=== PATIENT | male | born 1930 | race Caucasian/White ===

== ENCOUNTER → 2017-05-07 | Outpatient (CLI) | payer MEDICARE, OTHER ==
--- NOTE | 2017-05-07 15:36 | RADIOLOGY REPORT (SQ) ---
EXAM DESCRIPTION: U/S RETROPERITON (RENAL/AORTA) COMPLETED DATE/TIME: 05/07/2017 2:53 pm REASON FOR STUDY: ABN KIDNEY FUNCTION TEST (R94.4) R94.4 ABNORMAL RESULTS OF KIDNEY FUNCTION STUDIE S COMPARISON: None. TECHNIQUE: Dynamic and static grayscale images acquired of the kidneys and bladder and recorded on P ACS. Additional selected color Doppler and spectral images recorded. LIMITATIONS: None. FINDINGS: RIGHT KIDNEY: Normal size. Normal echogenicity. No solid or suspicious masses. No h ydronephrosis. No calcifications. 1.7 cm simple cortical cysts. 1.6 cm simple cortical cyst. LEFT KIDNEY: Normal size. Normal echogenicity. No solid or suspicious masses. No hydronephrosi s. No calcifications. 2.3 cm simple cortical cyst BLADDER: No masses. Right urinary jet visualized. OTHER FINDINGS: No other significant finding. IMPRESSION: Bilateral simple cortical cysts. Study is otherwise normal. TECHNICAL DOCUMENTATION: JOB ID: [id number] [employer]- All Rights Reserved
== END ==
LOC: RAD 13:55
PROVIDERS: ATTEND Internal Medicine
DX: R94.4 Abnormal results of kidney function studies (principal)
CPT/HCPCS: 76770

== ENCOUNTER 2019-06-03 08:25 | Day surgery (SDC) | payer MEDICARE, OTHER ==
[2019-06-01 10:38] LABS: HEMATOCRIT 35.4 % (37.9-51.0); HEMOGLOBIN 11.9 g/dL (13.5-17.0); MEAN CORPUSCULAR HEMOGLOBIN 33.7 pg (27.0-33.4); MEAN CORPUSCULAR HGB CONC 33.7 g/dL (32.0-36.0); MEAN CORPUSCULAR VOLUME 100 fl (80-97); PLATELET COUNT 181 10^3/uL (150-450); RED BLOOD COUNT 3.54 10^6/uL (4.35-5.55); RED CELL DISTRIBUTION WIDTH 13.8 % (11.5-14.0); WHITE BLOOD COUNT 5.2 10^3/uL (4.0-10.5)
[2019-06-01 11:04] LABS: ANION GAP 11 (5-19); BLOOD UREA NITROGEN 26 mg/dL (7-20); CALCIUM 9.8 mg/dL (8.4-10.2); CARBON DIOXIDE 29 mmol/L (22-30); CHLORIDE 101 mmol/L (98-107); GLUCOSE 72 mg/dL (75-110); POTASSIUM 4.1 mmol/L (3.6-5.0)
--- NOTE | 2019-06-01 12:24 | RADIOLOGY REPORT (SQ) ---
EXAM DESCRIPTION: CHEST PA/LATERAL COMPLETED DATE/TIME: 06/01/2019 10:15 am REASON FOR STUDY: PRE-OP COMPARISON: None. EXAM PARAMETERS: NUMBER OF VIEWS: two views TECHNIQUE: Digital Frontal and Lateral radiographic views of the chest acquired. RADIATION DOSE: NA LIMITATIONS: none FINDINGS: LUNGS AND PLEURA: Interstitial markings are mildly prominent. There is a calcified granul rosalia in the left base. Blunting of the costophrenic angles consistent with pleural thickening or smal l effusions. No focal consolidation. No pneumothorax. MEDIASTINUM AND HILAR STRUCTURES: No masses or contour abnormalities. HEART AND VASCULAR STRUCTURES: Heart normal size. No evidence for failure. BONES: No acute findings. HARDWARE: None in the chest. OTHER: No other significant finding. IMPRESSION: Suspect chronic bilateral interstitial changes right greater than left. There is a calc ified granuloma in the left base. There is blunting of the costophrenic angles consistent with small effusion versus pleural thickening. TECHNICAL DOCUMENTATION: JOB ID: [id number] [employer]- All Rights Reserved Reading location - IP/workstation name: [email or web address]
--- NOTE | 2019-06-02 00:33 | EKG REPORT ---
SEVERITY:- ABNORMAL ECG - ATRIAL FIBRILLATION NONSPECIFIC INTRAVENTRICULAR CONDUCTION DELAY LOW VOLTAGE IN FRONTAL LEADS : Confirmed by: Ana Maria Courtney 02-Jun-2019 00:33:07
[~2019-06-03 08:25] MED LIST: CEFAZOLIN SODIUM 1 GM in DEXTROSE 5%-WATER 50 ML IV PRN; LACTATED RINGERS 1000 ML IV PRN; LIDOCAINE 0.5% INJ-PF (5 MG/ML) 50 ML SDV SUBCUT PRN
[2019-06-03 09:28] LABS: INTERNATIONAL RATION (INR) 1.07; PROTHROMBIN TIME 13.9 SEC (11.4-15.4)
[2019-06-03 09:29] LABS: PARTIAL THROMBOPLASTIN TIME 32.9 SEC (23.5-35.8)
[2019-06-03] MEDS ORDERED: PROPOFOL INJ 200 MG/20 ML VIAL IV ONE ×2 (09:57→11:23)
[2019-06-03] MEDS ORDERED: FENTANYL CITRATE INJ/PF 100 MCG/2 ML AMPUL ONE (09:57)
[2019-06-03] MEDS ORDERED: MIDAZOLAM 2 MG/2 ML INJ ONE (09:57)
[2019-06-03] MEDS ORDERED: BUPIVACAINE HCL 0.25 % INJ/PF (2.5 MG/1 ML) 30 ML VIAL ONE (11:19)
[2019-06-03] MEDS ORDERED: OXYCODONE-ACETAMINOPHEN 5-325 MG TABLET PO PRN ×2 (11:48)
[2019-06-03] MEDS ORDERED: FENTANYL CITRATE INJ/PF 100 MCG/2 ML AMPUL IV PRN ×3 (11:48)
[2019-06-03] MEDS ORDERED: DIPHENHYDRAMINE HCL 50 MG/ML VIAL IV PRN (11:48)
[2019-06-03] MEDS ORDERED: ONDANSETRON HCL INJ/PF 4 MG/2 ML SDV IV PRN (11:48)
[2019-06-03] MEDS ORDERED: MORPHINE SULFATE 10 MG/ML INJ IV PRN (11:48)
[2019-06-03] MEDS ORDERED: MEPERIDINE HCL/PF INJ 25 MG/1 ML DISP.SYRIN IV PRN (11:48)
[2019-06-03] MEDS: BUPIVACAINE INJ/PF LIPOSOME/PF 266 MG/20 ML SDV ONE ×3 (11:51→12:50)
--- NOTE | 2019-06-03 13:07 | Discharge Summary ---
Discharge Summary (SDC) - Discharge Final Diagnosis: Right inguinal hernia, indirect Date of Surgery: 06/03/19 Discharge Date: 06/03/19 Condition: Good Treatment or Instructions: No heavy lifting pushing or pulling. Prescription on chart; may shower in 48 hours. Follow-up with [facility] in 1 to 2 weeks Referrals: NIXON OCAMPO MD [Primary Care Provider] - Discharge Diet: As Tolerated Discharge Activity: Activity As Tolerated Home Care Assistance: None Needed Report the Following to Your Physician Immediately: Shortness of Breath, Increase in Pain, Fever over 101 Degrees
--- NOTE | 2019-06-03 13:14 | Operative Report ---
Operative Report DATE OF SURGERY: 06/03/19 PREOPERATIVE DIAGNOSIS: Symptomatic right inguinal hernia POSTOPERATIVE DIAGNOSIS: Same, indirect OPERATION: Right inguinal exploration, right inguinal herniorrhaphy with medium Bard perfix plug and overlay mesh surgeon: Resection of cord lipoma SURGEON: KELLIE JOHNSON ANESTHESIA: LMAC TISSUE REMOVED OR ALTERED: Cord lipoma; right inguinal hernia sac COMPLICATIONS: None ESTIMATED BLOOD LOSS: Scant INTRAOPERATIVE FINDINGS: See below PROCEDURE: Patient was seen in the preop holding area the right inguinal area was marked. He was then taken to the main operating room where LMAC anesthesia was induced. The abdomen, genitalia were prepped and draped in sterile fashion with Betadine. Surgical plan and surgical time were conducted. Anatomic landmarks of the right inguinal region were identified, skin anesthetized with quarter percent Marcaine, and a 5 cm long diagonal incision was made over the external inguinal ring. Subcutaneous tissue and Andrew's fascia divided as encountered with electrocautery. Deeper tissues were anesthetized with Marcaine. The external oblique aponeurosis was sharply opened with knife then Metzenbaum scissors. Superior and inferior fascial flaps were developed. There was significant scar tissue at the area side of the external inguinal ring. Of note both the ileo-inguinal and the genitofemoral nerves were identified in this dissection, and kept out of harm's way. The contents of the inguinal canal were gingerly mobilized, surrounded with a Olivia drain. Flimsy cremasteric muscle fibers were divided. The floor the inguinal canal medially was intact. We mobilized the cord structures up to the level of the internal inguinal ring. We now interrogated all of the contents within the Cliff loop drain. The patient had a moderately large cord lipoma which was dissected all the way to its point of proximal origination, amputated at its base and oversewn with a 2-0 Vicryl suture. A very discrete, thin right indirect hernia sac was identified emanating laterally from the retroperitoneal space lateral to the inferior epigastric vessels. It was dissected free of all surrounding structures. It was opened and explored with the index finger and found to contain no viscera. I also palp ated the floor of the inguinal canal from the peritoneal side and found it to be intact. The sac was twisted, ligated at its base with a 2-0 Vicryl suture and amputated and sent to pathology. The stump was allowed to retract into the retroperitoneal space. We now brought onto the field a medium size Bard perfix polypropylene mesh, and deployed the plug component into the gap created lateral to the inferior epigastric vessels. It was sewed at 4 points with 0 PDS suture. We now trimmed the overlay mesh to an appropriate configuration and sewed it to the conjoined tendon, Poupart's ligament and lacunar ligament respectively with 7-8 0 PDS sutures. At the conclusion of the mesh insertion, the new internal ring was not too tight. At this point felt the operation was complete. Sponge and needle counts are correct. External oblique aponeurosis closed assisted with a running 2-0 Vicryl suture, Andrew's fascia closed with 2-0 Vicryl suture, and skin closed with 3-0 Vicryl suture, benzoin and Steri-Strips. 20 cc of full-strength Exparel deployed into the subcutaneous tissue. Patient tolerated the procedure well, taken to recovery room in stable condition.
[2019-06-03] MEDS ORDERED: ONDANSETRON HCL INJ/PF 4 MG/2 ML SDV ONE (15:04)
[2019-06-03] MEDS ORDERED: DEXAMETHASONE SOD PHOSPHATE INJ 4 MG/1 ML VIAL ONE (15:04)
[2019-06-03] MEDS ORDERED: KETOROLAC TROMETHAMINE 60 MG/2 ML SDV ONE (15:04)
[2019-06-03 15:07] VITALS: BP 177/93
== END 2019-06-03 14:45 | disposition home or self-care (01) ==
LOC: OROUT 08:25
PROVIDERS: ATTEND Surgery
DX: K40.90 Unilateral inguinal hernia, without obstruction or gangrene, not specified as recurrent (principal); D17.6 Benign lipomatous neoplasm of spermatic cord; I10 Essential (primary) hypertension; E78.00 Pure hypercholesterolemia, unspecified; Z79.899 Other long term (current) drug therapy; Z79.01 Long term (current) use of anticoagulants; I49.9 Cardiac arrhythmia, unspecified; Z01.818 Encounter for other preprocedural examination
CPT/HCPCS: 93005; 36415 ×2; 85027; 85610; 85730; 80048; 88302 ×2; 88304 ×2; 71046; 93010; 49505; J2250; J0690; J1100; J1885; J3010; J2405; J7060; J2704; C9290; C1781